=== PATIENT | male | born 1980 | race Caucasian/White ===

== ENCOUNTER 2016-12-27 02:32 | Inpatient (IN) | payer SELFPAY ==
[~2016-12-27] VITALS: Ht 182.9 cm; Wt 120.0 kg
[2016-12-27] VITALS (8 sets, daily range): BP systolic 104–144; BP diastolic 63–88; PULSE 64–92; RESP 16; TEMP 98.3–98.5; O2SAT 96–99
[2016-12-27] MEDS ORDERED: LIDOCAINE HCL 1% 50 ML VIAL INFIL ONE (03:00)
[2016-12-27] MEDS ORDERED: SODIUM CHLOR 0.9% 250 ML INJ 250 ML IV ONE (03:15)
[2016-12-27 03:48] LABS: AUTOMATED NEUTROPHIL # 6.7 TH/MM3 (1.8-7.7); BASOPHIL % 0.4 % (0.0-2.0); EOSINOPHIL # 0.1 TH/MM3 (0-0.4); HEMATOCRIT 39.7 % (39.0-51.0); HEMO FLAGS DIFF FINAL; LYMPH % 21.9 % (9.0-44.0); MEAN CORPUSCULAR HEMOGLOBIN 30.8 PG (27.0-34.0); MEAN CORPUSCULAR HGB CONC 35.9 % (32.0-36.0); MONO % 5.2 % (0.0-8.0); NEUT % 71.5 % (16.0-70.0); PLATELET COUNT 252 TH/MM3 (150-450); RED BLOOD COUNT 4.61 MIL/MM3 (4.50-5.90); RED CELL DISTRIBUTION WIDTH 12.8 % (11.6-17.2); WHITE BLOOD COUNT 9.3 TH/MM3 (4.0-11.0)
[2016-12-27 04:02] LABS: APTT (PATIENT) 25.2 SEC (24.3-30.1); PROTHROMBIN TIME - PATIENT 11.1 SEC (9.8-11.6)
[2016-12-27 04:12] LABS: ALT (GPT) 38 U/L (12-78); ANION GAP 13 MEQ/L (5-15); AST (GOT) 18 U/L (15-37); BICARBONATE 22.5 MEQ/L (21.0-32.0); BLOOD UREA NITROGEN 12 MG/DL (7-18); CHLORIDE 101 MEQ/L (98-107); GLOMERULAR FILTRATION RATE 103 ML/MIN (>89); POTASSIUM 3.7 MEQ/L (3.5-5.1); SODIUM (NA) 136 MEQ/L (136-145)
[2016-12-27 04:15] LABS: ALKALINE PHOSPHATASE 98 U/L (45-117); TOTAL BILIRUBIN ADULT 0.5 MG/DL (0.2-1.0)
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
[2016-12-27 04:59] LABS: HEMATOCRIT 30.3 % (39.0-51.0); REVIEW FLAG FINAL
[2016-12-27] MEDS ORDERED: ACETAMINOPHEN/HYDROcodone 325 MG/5 MG TAB PO ONE (05:45)
[2016-12-27] MEDS ORDERED: ACETAMINOPHEN/HYDROcodone 325 MG/5 MG TAB PO PRN ×2 (07:45)
[2016-12-27] MEDS ORDERED: PANTOPRAZOLE SODIUM 40 MG VIAL IVP SCH (07:45)
[2016-12-27] MEDS ORDERED: MORPHINE SULFATE 4 MG/ML INJ IV PRN (07:45)
[2016-12-27] MEDS ORDERED: SODIUM CHLORIDE 0.9% FLUSH 5 ML FLUSH IVF PRN (07:45)
[2016-12-27] MEDS ORDERED: ONDANSETRON HCL 4 MG/2 ML VIAL IV PRN (07:45)
[2016-12-27] MEDS ORDERED: ENALAPRILAT 1.25 MG/ML VIAL IV PRN (07:45)
[2016-12-27] MEDS ORDERED: MAGNESIUM HYDROXIDE SUSP 30 ML CUP PO SCH (09:00)
[2016-12-27] MEDS ORDERED: DOCUSATE SODIUM 50 MG/SENNA 8.6 MG TAB PO SCH (09:00)
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
[2016-12-27] MEDS ORDERED: NORC5TAB PO (12:04)
[2016-12-27] MEDS ORDERED: CEPH-460 PO (12:05)
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
== END 2016-12-27 15:03 | disposition home or self-care (01) | DRG 988 ==
LOC: NEPE 02:32 → NEDA 05:00 → OBSVTOIN 07:44
PROVIDERS: ADMIT Surgery; ATTEND Surgery
PROC: 0JQ10ZZ Repair Face Subcutaneous Tissue and Fascia, Open Approach (ICD-10-PCS; principal; 2016-12-27)
PROC: 30233N1 Transfusion of Nonautologous Red Blood Cells into Peripheral Vein, Percutaneous Approach (ICD-10-PCS; 2016-12-27)
DX: S01.312A Laceration without foreign body of left ear, initial encounter (principal); S02.40FA Zygomatic fracture, left side, initial encounter for closed fracture; I95.9 Hypotension, unspecified; X99.8XXA Assault by other sharp object, initial encounter; Y93.89 Activity, other specified; Y92.89 Other specified places as the place of occurrence of the external cause
CPT/HCPCS: 12013; 36430; 70450; 70486; 72125; 80053; 85014; 85018; 85025; 85610; 85730; 86077; 86850; 86870; 86900; 86901; 86920; 86922; 96360; C9113; J7050; P9016

== ENCOUNTER 2017-01-21 11:19 | Emergency (ER) | payer SELFPAY ==
[~2017-01-21] VITALS: Ht 182.9 cm; Wt 130.0 kg
[~2017-01-21 11:19] MED LIST: CEPH-460 PO; NORC5TAB PO
[2017-01-21 11:20] VITALS: BP 167/101; PULSE 77; RESP 14; TEMP 98; O2SAT 98
--- NOTE | 2017-01-21 12:28 | PD ---
HPI Chief Complaint: Wound/Suture/Staple Re-Check Time Seen by Provider: 12:23 Travel History International Travel<30 days: No Contact w/Intl Traveler<30days: No Traveled to known affect area: No History of Present Illness HPI 36-year-old male presents to the emergency department for suture removal. Patient was seen on December 27, 2016 at 6 sutures placed at that time. He denies any complications. No erythema. No swelling. No drainage. No other complaints. PFSH Past Medical History Diminished Hearing: No Tetanus Vaccination: < 5 Years Social History Alcohol Use: Yes (SOCIALLY) Tobacco Use: Yes (SOCIALLY) Substance Use: No Allergies-Medications (Allergen,Severity, Reaction): Coded Allergies: No Known Allergies (Unverified , 01/21/17) Reported Meds & Prescriptions Reported Meds & Active Scripts Active No Active Prescriptions or Reported Medications Review of Systems Except as stated in HPI: all other systems reviewed are Neg Physical Exam Narrative GENERAL: Well-developed well-nourished male patient, ambulatory. Afebrile SKIN: Warm and dry. Patient has well-healed laceration to the left auricle. There are only 3 sutures that are loosely in place. I suspect that the others have fallen out of this is an old laceration. HEAD: Normocephalic. Atraumatic. EYES: No scleral icterus. No injection or drainage. RESPIRATORY: No accessory muscle use. MUSCULOSKELETAL: No cyanosis, or edema. Data Data Last Documented VS Vital Signs Date Time Temp Pulse Resp B/P Pulse Ox O2 Delivery O2 Flow Rate FiO2 01/21/17 11:20 98.0 77 14 167/101 98 MDM Medical Decision Making Medical Screen Exam Complete: Yes Emergency Medical Condition: Yes Medical Record Reviewed: Yes Differential Diagnosis Suture removal versus dehiscence versus sialitis Narrative Course 36-year-old male presents to the emergency department for suture removal. Sutures were placed August 26, 2017. The sutures are very loose and almost falling out. There are only [address] I suspect the others have fallen out as this was placed almost one month ago. The laceration is well-healed. There is no evidence of cellulitis. Remaining sutures are removed without difficulty. Diagnosis Primary Impression: Visit for suture removal Referrals: Primary Care Physician as needed Patient Instructions: General Instructions, Stitches Removal (ED) Additional Instructions: Follow-up with your primary care physician as needed. Return to the emergency department for any acute worsening of symptoms. Med/Other Pt SpecificInfo: No Change to Meds Scripts No Active Prescriptions or Reported Meds Disposition: 01 DISCHARGE HOME Condition: Stable Valerie Mckeon Jan 21, 2017 12:28
== END 2017-01-21 12:53 | disposition home or self-care (01) ==
LOC: NEPB 11:19
DX: Z48.02 Encounter for removal of sutures (principal)
CPT/HCPCS: 99281